=== PATIENT | female | born 1960 | race Caucasian/White ===

== ENCOUNTER 2017-01-14 11:50 | Emergency (ER) | payer MEDICAID ==
[~2017-01-14] VITALS: Ht 157.5 cm; Wt 100.0 kg
[2017-01-14] MEDS ORDERED: KETOROLAC 30 MG/1 ML ONE (12:43)
[2017-01-14] MEDS ORDERED: KETOROLAC 30 MG/1 ML IM ONE (13:00)
[2017-01-14 14:33] VITALS: BP 138/82
[2017-01-15] MEDS ORDERED: FENTANYL PF 100 MCG/2ML ONE (14:45)
[2017-01-15] MEDS ORDERED: MIDAZOLAM 1 MG/ML, 2ML ONE (14:46)
== END 2017-01-14 14:37 | disposition home or self-care (01) ==
LOC: ED 14:00
DX: S82.831A Other fracture of upper and lower end of right fibula, initial encounter for closed fracture (principal); Z87.891 Personal history of nicotine dependence; X50.1XXA Overexertion from prolonged static or awkward postures, initial encounter; Y93.89 Activity, other specified; Y92.098 Other place in other non-institutional residence as the place of occurrence of the external cause; Y99.8 Other external cause status
CPT/HCPCS: 29515; 73552; 73610; 96372; 99284; J1885

== ENCOUNTER 2017-01-15 11:52 | Inpatient (IN) | payer MEDICAID ==
[~2017-01-15] VITALS: Ht 157.5 cm; Wt 103.9 kg
[2017-01-15 12:54] VITALS: BP 118/76
[2017-01-15] MEDS ORDERED: LACTATED RINGERS 1,000 ML IV SCH (13:03)
[2017-01-15] MEDS ORDERED: DEXAMETHASONE 4 MG/ML, 1ML ONE (15:10)
[2017-01-15] MEDS ORDERED: FENTANYL PF 250 MCG/5ML ONE (15:10)
[2017-01-15] MEDS ORDERED: MIDAZOLAM 1 MG/ML, 5ML ONE (15:10)
[2017-01-15] MEDS ORDERED: CEFAZOLIN 1,000 MG ONE (15:10)
[2017-01-15] MEDS ORDERED: ONDANSETRON 2MG/ML, 2ML ONE (15:10)
[2017-01-15] MEDS ORDERED: PROPOFOL 10 MG/ML, 20ML ONE (15:10)
[2017-01-15] MEDS ORDERED: KETOROLAC 30 MG/1 ML ONE (16:08)
[2017-01-15] MEDS ORDERED: ONDANSETRON 2MG/ML, 2ML IVPush PRN (16:30)
[2017-01-15] MEDS ORDERED: ACETAMINOPHEN 325 MG TABLET PO PRN (16:30)
[2017-01-15] MEDS ORDERED: PROMETHAZINE 25 MG/ML, 1ML IV PRN (16:30)
[2017-01-15] MEDS ORDERED: MEPERIDINE/PF 25MG/0.5ML IVPush PRN (16:30)
[2017-01-15] MEDS ORDERED: HYDROmorphone 1 MG/ML, 1ML IV PRN (16:30)
[2017-01-15] MEDS ORDERED: KETOROLAC 30 MG/1 ML IV PRN (16:30)
[2017-01-15] MEDS ORDERED: OXYcodone 5 MG/5 ML ORAL.SOL UDC PO PRN (16:30)
[2017-01-15] MEDS ORDERED: LABETALOL 5MG/ML, 20ML IV PRN (16:30)
[2017-01-15] MEDS ORDERED: FENTANYL PF 100 MCG/2ML IV PRN (16:30)
[2017-01-15] MEDS ORDERED: OXYcodone 5 MG/5 ML ORAL.SOL UDC ONE (16:51)
[2017-01-15] MEDS ORDERED: ACETAMINOPHEN 650 MG/20.3 ML UDC ONE (16:51)
[2017-01-15] MEDS ORDERED: morphine SULFATE 10 MG/ML, 1ML IV PRN (19:30)
[2017-01-15] MEDS ORDERED: ONDANSETRON 2MG/ML, 2ML IV PRN (19:30)
[2017-01-15] MEDS: LACTATED RINGERS 1,000 ML IV SCH (19:30)
[2017-01-15 20:01] VITALS: BP 127/77
[2017-01-15] MEDS: OXYcodone/APAP 5/325MG TABLET PO PRN (21:41)
[2017-01-15 23:53] VITALS: BP 133/76
[2017-01-16 02:36] VITALS: BP 119/68
[2017-01-16 08:05] VITALS: BP 120/63
[2017-01-16] MEDS: LACTATED RINGERS 1,000 ML IV SCH ×2 (09:04→22:10)
[2017-01-16 14:14] VITALS: BP 117/77
[2017-01-16] MEDS: OXYcodone/APAP 5/325MG TABLET PO PRN ×2 (15:14→19:03)
[2017-01-16] MEDS ORDERED: BISACODYL 10 MG SUPP PR PRN (18:00)
[2017-01-16] MEDS ORDERED: LACTULOSE 20 GM/30 ML UDC PO PRN (18:00)
[2017-01-16 20:56] VITALS: BP 113/74
[2017-01-16] MEDS ORDERED: SENNA/DOCUSATE TABLET PO SCH (21:00)
[2017-01-17] MEDS: OXYcodone/APAP 5/325MG TABLET PO PRN ×3 (01:14→12:58)
[2017-01-17 03:19] VITALS: BP 102/70
[2017-01-17 07:40] VITALS: BP 129/83
[2017-01-17] MEDS ORDERED: DOCUSATE 100 MG CAPSULE PO SCH (09:00)
[2017-01-17] MEDS: LACTATED RINGERS 1,000 ML IV SCH (13:05)
[2017-01-17 14:01] VITALS: BP 116/78
[2017-01-17] MEDS ORDERED: OXYC5CAP2 PO (14:59)
[2017-01-17] MEDS ORDERED: ASPI-496 PO (15:00)
== END 2017-01-17 15:12 | disposition home or self-care (01) | DRG 494 ==
LOC: OUT 11:52 → ORIP 17:45 → 4NOR 18:31 → DCLOUNGE 01-17 14:56
PROVIDERS: ADMIT Orthopaedic Surgery; ATTEND Orthopaedic Surgery
PROC: 0QSJ04Z Reposition Right Fibula with Internal Fixation Device, Open Approach (ICD-10-PCS; principal; 2017-01-15 14:30)
DX: S82.409A Unspecified fracture of shaft of unspecified fibula, initial encounter for closed fracture (principal); W19.XXXA Unspecified fall, initial encounter; Y93.89 Activity, other specified; Y92.89 Other specified places as the place of occurrence of the external cause; Y99.8 Other external cause status
CPT/HCPCS: 76000; J0690; J1100; J1885; J2250; J2405; J2704; J3010; J7120